=== PATIENT | male | born 1985 | race Caucasian/White ===

== ENCOUNTER → 2018-07-11 | Day surgery (SDC) | payer MEDICAID ==
[~2018-07-11] MED LIST: Lactated Ringers 1,000 ML IV SCH; Propofol 200 MG/20 ML SDV IV ONE
--- NOTE | 2018-07-11 12:18 | OR ---
DATE OF OPERATION: 07/11/2018 PREOPERATIVE DIAGNOSIS: EPIGASTRIC PAIN. POSTOPERATIVE DIAGNOSIS: EPIGASTRIC PAIN. SURGEON: Marino Gallardo MD PROCEDURE: EGD WITH BIOPSIES X4, MEGAN. ANESTHESIA: GLOST KILN PLACER due to morbid obesity. COMPLICATIONS: None. SPECIMEN: 1. Duodenal biopsy x1. 2. Fundal biopsy x1. 3. Antral biopsy x2. 4. MEGAN. FINDINGS: 1. Full-length EGD. 2. Diffuse peptic ulcer disease from the distal fundus to the duodenal bulb, with multiple ulcers/erosions. RECOMMENDATIONS: Appropriate medical care. We will put him on b.i.d. proton pump inhibitor and a short course of Carafate. MEGAN test is pending. INDICATIONS: The patient is having ongoing abdominal pain. He does admit to using a lot of anti-inflammatories for some chronic ankle issues that he has been having. We suspect peptic ulcer disease. DESCRIPTION OF PROCEDURE: The patient was prepped and draped, placed in the left lateral decubitus position. A lubricated Olympus gastroscope was inserted over a bit and advanced to cricopharyngeus area and easily intubated into the esophagus. Esophageal lining was benign. Its entire course of Z-line was crisp and sharp around 38 cm. No hernia present. The scope was advanced into the stomach through the pylorus and into the second portion of the duodenum. The second portion of duodenum was benign and the duodenal bulb was markedly inflamed with diffuse and multiple shallow ulcers/erosions. Biopsy was taken for confirmation. The scope was brought back into the stomach and retroflexed. The upper fundus and cardia were benign. The distal fundus and all of the antrum had diffuse peptic ulcer disease with significant acute gastritis. There was at least 8-10 small ulcers/erosions. None of them actively bleeding with adherent clot. Total of three biopsies and CLOtest were obtained. No other masses or polyps were seen. Air was suctioned and scope removed without complication. CASEY/JOIE /[id number]
== END ==
LOC: CC.SDS 09:00
PROVIDERS: ATTEND Family Medicine
DX: K29.50 Unspecified chronic gastritis without bleeding (principal); K29.80 Duodenitis without bleeding; K21.9 Gastro-esophageal reflux disease without esophagitis; E78.5 Hyperlipidemia, unspecified; E03.9 Hypothyroidism, unspecified; F41.9 Anxiety disorder, unspecified; F17.210 Nicotine dependence, cigarettes, uncomplicated; Z79.899 Other long term (current) drug therapy
CPT/HCPCS: 87081; J2704; J7120